=== PATIENT | male | born 1940 | race Caucasian/White ===

== ENCOUNTER 2023-05-13 17:06 | Inpatient (IN) | payer OTHER, BC ==
[2023-05-13 17:56] VITALS: BMI 28.3
[2023-05-13] MEDS ORDERED: SODIUM CHLORIDE 2,313 ML IV ONE (18:08)
[2023-05-13] MEDS ORDERED: ACETAMINOPHEN 1000 MG/100 ML BAG IVPB ONE (18:25)
[2023-05-13] MEDS ORDERED: SODIUM CHLORIDE 0.9% 500 ML INFUS.BAG IV ONE (18:25)
[2023-05-13] MEDS ORDERED: ACETAMINOPHEN INJECTION 100 ML IVPB ONE (18:31)
[2023-05-13 18:45] LABS: VENOUS BASE EXCESS -0.2 mmol/L (-2-2); VENOUS O2 SATURATION 25.3 % (70-80); VENOUS PCO2 40.2 mmHg (38-52); VENOUS PH 7.403 (7.310-7.410)
[2023-05-13 18:47] LABS: HEMATOCRIT 40.1 % (35.4-49); HEMOGLOBIN 13.6 GM/dL (11.7-16.9); MCH 31.4 pg (25.7-33.7); MEAN CELL VOLUME 92.2 fl (80-96); MEAN PLT VOLUME 9.2 fl (7.5-11.1); PLATELET COUNT 154 10^3/uL (134-434); RBC 4.34 M/mm3 (4.00-5.60); RDW 13.7 % (11.9-15.9); WHITE BLOOD COUNT 12.7 K/mm3 (4.0-10.0)
[2023-05-13 19:02] LABS: EPI CELLS 4 /uL (0-25.1); HYALINE CASTS 1 /uL (0-3.1); INR 1.11 (0.83-1.09); PH,URINE 5.5 (5.0-8.0); PROTHROMBIN TIME (PATIENT) 12.9 SEC (9.7-13.0); URINE APPEARANCE CLEAR; URINE BACTERIA 19 /uL (0-1359); URINE BILIRUBIN NEGATIVE (NEGATIVE); URINE COLOR YELLOW; URINE GLUCOSE (UA) NEGATIVE (NEGATIVE); URINE KETONE NEGATIVE (NEGATIVE); URINE LEUK ESTERASE NEGATIVE (NEGATIVE); URINE NITRITE NEGATIVE (NEGATIVE); URINE PROTEIN 1+ (NEGATIVE); URINE RBC 5 /uL (0-23.9); URINE UROBILINOGEN 0.2 mg/dL (0.2-1.0); URINE WBC 5 /uL (0-25.8)
[2023-05-13 19:15] LABS: CHLORIDE 104 mmol/L (98-107); SODIUM 137 mmol/L (136-145)
[2023-05-13 19:17] LABS: ANION GAP 6 mmol/L (4-13); BLOOD UREA NITROGEN 23.2 mg/dL (7-18); CALCIUM 8.9 mg/dL (8.5-10.1); CO2 27 mmol/L (21-32)
[2023-05-13 19:18] LABS: GLUCOSE,RANDOM 113 mg/dL (74-106)
[2023-05-13 19:20] LABS: SGPT/ALT 18 U/L (13-61)
[2023-05-13 19:21] LABS: CREATININE 1.8 mg/dL (0.55-1.3); SGOT/AST 16 U/L (15-37)
[2023-05-13 19:22] LABS: BILIRUBIN,TOTAL 0.9 mg/dL (0.2-1)
[2023-05-13 19:24] LABS: ALK PHOS 64 U/L (45-117)
[2023-05-13 19:27] LABS: LACTIC ACID 2.1 mmol/L (0.4-2.0)
[2023-05-13 20:36] LABS: ANISOCYTOSIS 0; HELMET CELLS 0; HOWELL-JOLLY BODIES 0; MACROCYTOSIS 0; OVALOCYTE 0; PLATELET ESTIMATE NORMAL; ROULEAU 0; SICKELED CELLS 0; TARGET CELLS 0; TEAR DROP CELLS 0; TOXIC GRANULATION 0
[2023-05-13] MEDS: SODIUM CHLORIDE 1,000 ML IV SCH (23:30)
[2023-05-14 07:20] LABS: HEMATOCRIT 33.3 % (35.4-49); HEMOGLOBIN 11.2 GM/dL (11.7-16.9); MCH 31.1 pg (25.7-33.7); MCHC 33.5 g/dl (32.0-35.9); MEAN CELL VOLUME 92.7 fl (80-96); MEAN PLT VOLUME 9.7 fl (7.5-11.1); PLATELET COUNT 120 10^3/uL (134-434); RBC 3.59 M/mm3 (4.00-5.60); RDW 13.4 % (11.9-15.9); WHITE BLOOD COUNT 9.2 K/mm3 (4.0-10.0)
[2023-05-14 07:31] LABS: POTASSIUM 3.6 mmol/L (3.5-5.1)
[2023-05-14 07:34] LABS: CALCIUM 7.7 mg/dL (8.5-10.1)
[2023-05-14 07:35] LABS: BLOOD UREA NITROGEN 20.6 mg/dL (7-18)
[2023-05-14 07:38] LABS: CREATININE 1.5 mg/dL (0.55-1.3)
[2023-05-14 07:41] LABS: BILIRUBIN,DIRECT 0.2 mg/dL (0.0-0.2)
[2023-05-14 07:44] LABS: BILIRUBIN,TOTAL 0.6 mg/dL (0.2-1); TOT PROT 5.3 g/dl (6.4-8.2)
[2023-05-14 07:49] LABS: ALBUMIN 3.1 g/dl (3.4-5.0)
[2023-05-14] MEDS: SODIUM CHLORIDE 1,000 ML IV SCH (21:06)
[2023-05-15] MEDS: SODIUM CHLORIDE 1,000 ML IV SCH (18:23)
[2023-05-15] MEDS ORDERED: SODIUM CHLORIDE 0.9% 500 ML INFUS.BAG IV ONE (21:44)
[2023-05-16 08:17] LABS: BASO % 0.5 % (0-2.0); EOS % 2.6 % (0-4.5); HEMATOCRIT 32.9 % (35.4-49); HEMOGLOBIN 10.9 GM/dL (11.7-16.9); LYMPH % 20.9 % (8-40); MCH 30.9 pg (25.7-33.7); MCHC 33.2 g/dl (32.0-35.9); MEAN PLT VOLUME 9.3 fl (7.5-11.1); MONO % 9.6 % (3.8-10.2); NEUT % 66.4 % (42.8-82.8); PLATELET COUNT 129 10^3/uL (134-434); RBC 3.54 M/mm3 (4.00-5.60); RDW 13.2 % (11.9-15.9); WHITE BLOOD COUNT 5.8 K/mm3 (4.0-10.0)
[2023-05-16 08:29] LABS: POTASSIUM 3.7 mmol/L (3.5-5.1)
[2023-05-16 08:37] LABS: ALBUMIN 2.8 g/dl (3.4-5.0); CALCIUM 7.9 mg/dL (8.5-10.1)
[2023-05-16 08:38] LABS: BLOOD UREA NITROGEN 12.7 mg/dL (7-18)
[2023-05-16 08:41] LABS: CREATININE 1.1 mg/dL (0.55-1.3)
[2023-05-16 08:42] LABS: BILIRUBIN,TOTAL 0.4 mg/dL (0.2-1); TOT PROT 5.2 g/dl (6.4-8.2)
[2023-05-16] MEDS ORDERED: ALBUTEROL SO4 HFA INHALER IH PRN (09:23)
[2023-05-16 11:57] VITALS: BP 127/61; PULSE 71; RESP 18; TEMP 98.2
[2023-05-16] MEDS ORDERED: CYANOCOBALAMIN (VITAMIN B-12) 1000 MCG/1 ML VIAL IM ONE (12:13)
== END 2023-05-16 13:19 | disposition home or self-care (01) | DRG 392 ==
LOC: JER 17:06 → JERBED 20:23 → J7W 05-14 14:22
PROVIDERS: ADMIT Internal Medicine
DX: K52.9 Noninfective gastroenteritis and colitis, unspecified (principal); N17.9 Acute kidney failure, unspecified; E78.5 Hyperlipidemia, unspecified; I10 Essential (primary) hypertension; E86.0 Dehydration
CPT/HCPCS: 0241U-QW; 36415; 71045-TC-FY; 76775-TC; 80048; 80053; 80076; 81003; 82436; 82550; 82553; 82570; 82803; 83605; 83935; 84133; 84300; 84484; 85025; 85027; 85610; 85730; 86850; 86900; 86901; 87040; 87045; 87046; 87086; 87186; 87324; 87425; 87449; 87798; 93005; 93010; 94010; 99285-25